=== PATIENT | male | born 1990 | race Caucasian/White ===

== ENCOUNTER 2017-10-19 13:16 | Emergency (ER) | payer MEDICAID ==
[2017-10-19 13:25] VITALS: RESP 18; TEMP 97.8
[2017-10-19] MEDS ORDERED: Oxycodone/Acetaminophen 5/325 mg Tab PO STA (14:10)
[2017-10-19] MEDS ORDERED: Oxycodone/Acetaminophen 5/325 mg Tab ONE (14:19)
--- NOTE | 2017-10-19 15:34 | RAD ---
PROCEDURE: Radiographs of the Lumbar Spine. . Three views of the lumbar spine performed. HISTORY: Back pain COMPARISON: No prior. FINDINGS: BONES: Current study reveals no acute compression fractures no retropulsed fragments. Vertebral bodies exhibit normal stature. There is a subtle levoscoliosis centered at the L3-L4 level. Vertebral bodies otherwise exhibit normal alignment. Facets normally aligned. DISC SPACES: Disc space heights relatively maintained. OTHER FINDINGS: None. IMPRESSION: No acute fractures. Subtle levoscoliosis as above.
--- NOTE | 2017-10-19 15:36 | C.PDOC ---
History Of Present Illness 26yo male, presents with lower back pain. Patient states he was lifting a refrigerator back, and he felt his back "pop." Patient took Motrin for pain with no relief. Patient denies any numbness/weakness, bladder/bowel incontinence. Time Seen by Provider: 10/19/17 14:01 Chief Complaint (Nursing): Back Pain History Per: Patient History/Exam Limitations: no limitations Past Medical History Reviewed: Historical Data, Nursing Documentation, Vital Signs Vital Signs: Last Vital Signs Temp 97.8 F 10/19/17 13:20 Pulse 63 10/19/17 15:40 Resp 18 10/19/17 15:40 BP 121/67 10/19/17 15:40 Pulse Ox 100 10/19/17 16:36 Family History: States: No Known Family Hx - Social History Hx Alcohol Use: No Hx Substance Use: No - Immunization History Hx Tetanus Toxoid Vaccination: No Hx Influenza Vaccination: No Hx Pneumococcal Vaccination: No Review Of Systems Musculoskeletal: Positive for: Back Pain Neurological: Negative for: Weakness, Numbness Physical Exam - Physical Exam Appears: Non-toxic, No Acute Distress Skin: Normal Color, Warm, Dry, No Rash Head: Normacephalic Eye(s): bilateral: PERRL Nose: Normal Oral Mucosa: Moist Lips: Normal Appearing Neck: Normal ROM Back: Paraspinal Tenderness (lumbar), Other (no midline tenderness, negative straight leg, (+) pulses equal at dp/pt ) Extremity: Normal ROM, No Deformity, No Swelling Neurological/Psych: Oriented x3, Normal Speech ED Course And Treatment O2 Sat by Pulse Oximetry: 100 (RA) Pulse Ox Interpretation: Normal Medical Decision Making Medical Decision Making: Impression: Back pain Plan: * Percocet * XR Spine * Reassess and Disposition Disposition Counseled Patient/Family Regarding: Studies Performed, Diagnosis, Need For Followup, Rx Given - Disposition Referrals: [facility] [Outside] Disposition: HOME/ ROUTINE Disposition Time: 15:34 Condition: STABLE Additional Instructions: follow up with medical clinic in 2 days call to make an appointment take pain medication as needed return to ER if symptoms worsens or progress Prescriptions: Acetaminophen/Codeine [Tylenol/Codeine 300 MG/30 MG] 1 tab PO Q6H PRN #12 tab PRN Reason: Pain, Severe (8-10) Cyclobenzaprine [Cyclobenzaprine HCl] 10 mg PO TID PRN #12 tab PRN Reason: Muscle Spasm Naproxen [Naprosyn] 500 mg PO BID PRN #16 tab PRN Reason: Pain, Moderate (4-7) Instructions: Low Back Pain in Adults Forms: General Discharge Instructions, [facility] (Macedonian), Work Excuse - Clinical Impression Clinical Impression: Low back pain - Scribe Statement The provider has reviewed the documentation as recorded by the Scribe (Yumiko Frye) All medical record entries made by the Scribe were at my direction and personally dictated by me. I have reviewed the chart and agree that the record accurately reflects my personal performance of the history, physical exam, medical decision making, and the department course for this patient. I have also personally directed, reviewed, and agree with the discharge instructions and disposition.
[2017-10-19 15:41] VITALS: BP 121/67; PULSE 63
[2017-10-19 16:35] VITALS: O2SAT 100
== END 2017-10-19 15:41 | disposition home or self-care (01) ==
LOC: C.ER 13:16
DX: M54.5 Low back pain (principal)